=== PATIENT | female | born 1985 | race Caucasian/White ===

== ENCOUNTER 2021-07-05 14:47 | Outpatient (REF) | payer MEDICARE, MEDICAID, SELFPAY ==
[2021-07-05 15:37] LABS: Influenza A PCR NEGATIVE (Negative); Influenza B PCR NEGATIVE (Negative); Resp Syncy Virus RNA Qual PCR NEGATIVE (Negative); SARS COV2 PCR INHOUSE NEGATIVE (Negative)
== END 2021-07-05 14:48 | disposition home or self-care (01) ==
LOC: HO.LNP 14:47
PROVIDERS: Visit Provider Family Medicine
DX: Z20.822 Contact with and (suspected) exposure to COVID-19 (principal)
CPT/HCPCS: 0241U

== ENCOUNTER → 2022-07-09 09:27 | Outpatient (BNVA) | payer MEDICARE, MEDICAID, SELFPAY | PROVIDERS: Visit Provider Physician Assistant Surgical | DX: E66.01 Morbid (severe) obesity due to excess calories (principal) | CPT/HCPCS: 99202 ==

== ENCOUNTER → 2022-08-01 10:19 | Outpatient (BNVA) | payer OTHER, MEDICAID, SELFPAY | PROVIDERS: Visit Provider Dietitian, Registered | DX: E66.01 Morbid (severe) obesity due to excess calories (principal); Z68.43 Body mass index [BMI] 50.0-59.9, adult; Z89.612 Acquired absence of left leg above knee; Z89.611 Acquired absence of right leg above knee; Z89.029 Acquired absence of unspecified finger(s); Z71.3 Dietary counseling and surveillance | CPT/HCPCS: 97802 ==

== ENCOUNTER → 2022-08-13 12:08 | Outpatient (BNVA) | payer OTHER, MEDICAID, SELFPAY | PROVIDERS: Visit Provider Physician Assistant Surgical | DX: E66.01 Morbid (severe) obesity due to excess calories (principal) | CPT/HCPCS: Q3014 ==

== ENCOUNTER → 2022-09-04 10:26 | Outpatient (BNVA) | payer MEDICARE, MEDICAID, SELFPAY | PROVIDERS: Visit Provider Dietitian, Registered | DX: E66.9 Obesity, unspecified (principal) | CPT/HCPCS: 97803 ==

== ENCOUNTER 2022-09-16 10:55 | Outpatient (REF) | payer MEDICARE, MEDICAID, SELFPAY ==
[2022-09-16 12:33] LABS: Estimated Average Glucose 128 mg/dL; Hemoglobin A1c % 6.1 %
[2022-09-16 13:09] LABS: Cholesterol 157 mg/dL; Ferritin 78 ng/mL (10-122); HDL Cholesterol 36 mg/dL; Iron 85 mcg/dL (30-160); LDL Cholesterol Calculated 84 mg/dl; Percent Iron Saturation 29 % (15-50); Total Iron Binding Capacity 298 mcg/dL (228-428); Triglycerides 185 mg/dL; Unsaturated Iron Binding 213 ug/dL; Vitamin D 25-OH Total 18.7 ng/mL (>30)
[2022-09-16 13:23] LABS: Folate 19.2 ng/mL (> or = 4.0); Vitamin B12 472 pg/mL (200-900)
[2022-09-17 10:56] LABS: Calcium (PTHI) 9.4 mg/dL (8.6-10.2); PTHI 70 pg/mL (16-77)
[2022-09-20 20:26] LABS: Zinc 69 mcg/dL (60-130)
[2022-09-21 06:41] LABS: Vitamin B1 19 nmol/L (8-30)
[2022-09-24 10:54] LABS: Vitamin A 39 mcg/dL (38-98)
== END 2022-09-16 10:56 | disposition home or self-care (01) ==
LOC: HO.LAB 10:55
PROVIDERS: Visit Provider Physician Assistant Surgical
DX: E66.01 Morbid (severe) obesity due to excess calories (principal)
CPT/HCPCS: 36415; 80061; 82306; 82607; 82728; 82746; 83013; 83036; 83540; 83970; 84425; 84590; 84630; 99211; 99212

== ENCOUNTER 2022-09-16 14:39 | Outpatient (REF) | payer MEDICARE, MEDICAID, SELFPAY ==
[2022-09-18 13:43] LABS: H Pylori Breath Test Negative (Negative)
== END 2022-09-16 14:40 | disposition home or self-care (01) ==
LOC: HO.LNP 14:39
PROVIDERS: Visit Provider Physician Assistant Surgical
DX: Z13.89 Encounter for screening for other disorder (principal)
CPT/HCPCS: 83013